=== PATIENT | male | born 1950 | race Caucasian/White ===

== ENCOUNTER 2025-01-31 10:01 | Outpatient (CLI) | payer MEDICARE, SELFPAY | END 2025-01-31 10:02 | disposition home or self-care (01) | LOC: NFLDREF 02-02 12:20 | PROVIDERS: PCP Family Medicine; Visit Provider Family Medicine | DX: Z00.00 Encounter for general adult medical examination without abnormal findings (principal); E78.00 Pure hypercholesterolemia, unspecified; R79.89 Other specified abnormal findings of blood chemistry; R53.83 Other fatigue; Z12.5 Encounter for screening for malignant neoplasm of prostate | CPT/HCPCS: 80053; 84270; 84402; 84403; G0103 ==